=== PATIENT | male | born 1955 | race Caucasian/White ===

== ENCOUNTER 2021-05-26 12:27 | Emergency (ER) | payer MEDICARE, OTHER ==
[2021-05-26] MEDS ORDERED: Ketorolac 30 MG/ML SDV IVPUSH ONE (13:10)
[2021-05-26] MEDS ORDERED: Sodium Chloride 0.9% 1,000 ML IV SCH (13:15)
--- NOTE | 2021-05-26 13:19 | EDM.PDOC ---
ED HPI GENERAL MEDICAL PROBLEM - General Chief Complaint: Flank Pain Stated Complaint: KIDNEY STONE Time Seen by Provider: 05/26/21 13:14 Source of Information: Reports: Patient History Limitations: Reports: No Limitations - History of Present Illness INITIAL COMMENTS - FREE TEXT/NARRATIVE: pt arrived with acute abdomanal pain--left flank. He has a history of kidney stonme. They are usually small and he passes them without difficulty. The pain started a 8 am. Onset: Today, Sudden Duration: Hour(s):, Getting Worse Location: Reports: Back Associated Symptoms: Reports: No Other Symptoms Abdomen Pain Score (Numeric/FACES): 8 - Related Data Allergies Allergy/AdvReac Type Severity Reaction Status Date / Time Penicillins Allergy Mild Rash Verified 05/26/21 13:25 Sulfa (Sulfonamide Allergy Mild Chest Pain Verified 05/26/21 13:24 Antibiotics) ED ROS GENERAL - Review of Systems Review Of Systems: See Below Constitutional: Reports: No Symptoms HEENT: Reports: No Symptoms Respiratory: Reports: No Symptoms Cardiovascular: Reports: No Symptoms Endocrine: Reports: No Symptoms GI/Abdominal: Reports: Other ( left flank ) : Reports: Flank Pain Musculoskeletal: Reports: No Symptoms Skin: Reports: No Symptoms Neurological: Reports: No Symptoms Psychiatric: Reports: Anxiety ED EXAM, RENAL/ - Physical Exam Exam: See Below Text/Narrative:: pt arrived with severe left flank pain. He does have a history of kidney stones. Exam Limited By: No Limitations General Appearance: Alert, Anxious, Severe Distress Ears: Normal TMs Nose: Normal Inspection Throat/Mouth: Normal Inspection Head: Atraumatic Neck: Normal Inspection Respiratory/Chest: No Respiratory Distress Cardiovascular: Regular Rate, Rhythm GI/Abdominal: Soft, Non-Tender (Male) Exam: Deferred Rectal (Males) Exam: Deferred Back Exam: Normal Inspection Extremities: Normal Inspection Neurological: Alert, Oriented, Normal Cognition Psychiatric: Normal Affect Course - Vital Signs Last Recorded V/S: Last Vital Signs Temp 35.8 C L 05/26/21 13:36 Pulse 77 05/26/21 15:48 Resp 18 05/26/21 15:48 BP 132/75 05/26/21 15:48 Pulse Ox 97 05/26/21 15:48 - Orders/Labs/Meds Labs: Laboratory Tests 12/09/21 12/09/21 12/09/21 Range/Units 13:06 13:11 13:20 WBC 13.5 H (4.5-11.0) K/uL RBC 4.61 (4.30-5.90) M/uL Hgb 15.1 H (12.0-15.0) g/dL Hct 42.4 (40.0-54.0) % MCV 92 (80-98) fL MCH 33 H (27-31) pg MCHC 36 (32-36) % Plt Count 229 (150-400) K/uL Neut % (Auto) 90.4 H (36-66) % Lymph % (Auto) 5.8 L (24-44) % Pratt % (Auto) 3.7 (2-6) % Eos % (Auto) 0.0 L (2-4) % Baso % (Auto) 0.1 (0-1) % Sodium 137 L (140-148) mmol/L Potassium 3.2 L (3.6-5.2) mmol/L Chloride 98 L (100-108) mmol/L Carbon Dioxide 23 (21-32) mmol/L Anion Gap 19.2 H (5.0-14.0) mmol/L BUN 19 H (7-18) mg/dL Creatinine 1.6 H (0.8-1.3) mg/dL Est Cr Clr Drug Dosing 49.17 mL/min Estimated GFR (MDRD) 43 L (>60) Glucose 195 H (74-106) mg/dL Calcium 8.6 (8.5-10.1) mg/dL Total Bilirubin 1.3 H (0.2-1.0) mg/dL AST 36 (15-37) U/L ALT 65 (12-78) U/L Alkaline Phosphatase 75 (46-116) U/L Total Protein 6.8 (6.4-8.2) g/dL Albumin 4.3 (3.4-5.0) g/dL Globulin 2.5 (2.3-3.5) g/dL Albumin/Globulin Ratio 1.7 (1.2-2.2) Urine Color Yellow (YELLOW) Urine Appearance Cloudy A (CLEAR) Urine pH 7.5 (5.0-8.0) Ur Specific [place] 1.020 (1.008-1.030) Urine Protein Negative (NEGATIVE) mg/dL Urine Glucose (UA) 100 H (NEGATIVE) mg/dL Urine Ketones 15 H (NEGATIVE) mg/dL Urine Occult Blood Small H (NEGATIVE) Urine Nitrite Negative (NEGATIVE) Urine Bilirubin Negative (NEGATIVE) Urine Urobilinogen 0.2 (0.2-1.0) EU/dL Ur Leukocyte Esterase Negative (NEGATIVE) Urine RBC 5-10 H (0-5) Urine WBC 5-10 H (0-5) Ur Epithelial Cells Few Amorphous Sediment Moderate Urine Bacteria Not seen Urine Mucus Not seen Meds: Medications Discontinued Medications Generic Name Dose Route Start Last Admin Trade Name Freq PRN Reason Stop Dose Admin Sodium Chloride 1,000 mls @ 999 mls/hr 05/26/21 13:15 05/26/21 13:32 Normal Saline IV 999 mls/hr ASDIRECTED EFRAIN Administration Ketorolac Tromethamine 30 mg 05/26/21 13:10 05/26/21 13:29 Ketorolac 30 Mg/Ml Sdv IVPUSH 05/26/21 13:11 30 mg ONETIME ONE Administration - Re-Assessments/Exams Free Text/Narrative Re-Assessment/Exam: 05/26/21 16:03 cat scan showed a 3 mm stone in the upper ureter. He does have some evidence of a hydro. Departure - Departure Time of Disposition: 15:56 Disposition: Home, Self-Care 01 Condition: Fair Clinical Impression: Left ureteral stone, Elevated glucose - Discharge Information Instructions: Kidney Stones, [id number] Referrals: PCP,None [Primary Care Provider] - Forms: ED Department Discharge Care Plan Goals: strain all urine. push fluids, flomax .4 daily, torodol 10 mg q6h prn for pain. pt has norco 10/325 athome that he can use.
--- NOTE | 2021-05-26 14:49 | CT ---
Abdomen Pelvis wo Cont CLINICAL HISTORY: Left flank pain, history of kidney stones COMPARISON: None. TECHNIQUE: Axial tomographic images are obtained from the dome of the diaphragm to the pubic symphysis without IV contrast enhancement. No oral contrast was used. The dosage reduction and iterative reconstruction techniques employed. FINDINGS: The left kidney is hydronephrotic. There is moderate stranding in the perinephric fat. There is a punctate calcification in the mid ureter there are a few scattered nonobstructing punctate calcifications in the right kidney. Right ureter has a normal course and caliber. Bladder has a normal contour. There is moderate prostatic enlargement. The lung bases are clear. The liver shows fatty infiltration. The gallbladder is unremarkable. The spleen contains some spherical calcifications. These may be granulomatous. The pancreas shows no mass or inflammatory change. The adrenal glands are normal bilaterally. The aorta shows atheromatous plaque without aneurysm. There is no suspicious retroperitoneal adenopathy. There is sigmoid diverticulosis without evidence of diverticulitis IMPRESSION: Partially obstructing 3 mm left proximal ureteral stone. There is hydronephrosis and perinephric stranding Moderate prosthetic enlargement Diverticulosis
== END 2021-05-26 16:45 | disposition home or self-care (01) ==
LOC: JP.ED 12:27
DX: N13.2 Hydronephrosis with renal and ureteral calculous obstruction (principal); R73.9 Hyperglycemia, unspecified; Z88.0 Allergy status to penicillin; Z88.2 Allergy status to sulfonamides
CPT/HCPCS: 36415; 74176; 74176-26; 80053; 81001; 85025; 96374; 99284-25; J1885; J7030